=== PATIENT | female | born 1940 | race Caucasian/White ===

== ENCOUNTER → 2017-08-18 | Day surgery (SDC) | payer OTHER ==
[~2017-08-18] MED LIST: AMLODIPINE BESY10 M1 PO; ANASTROZOLE1 M1 PO; BENADRYL25 MG PO; BENICAR HCT 251 TAB PO; CLORAZEPATE D3.75 M1 PO; EXCEDRIN EXTRA1 EACH PO; FISH OIL 1,0001 EAC5 PO; FLUOXETINE HCL20 M3 PO; HYZAAR 100-12.1 EACH PO; KAOPECTATE262 MG/11 PO; LABETALOL HYDR100 MG PO; MELATONIN3 M4 PO; STRESS B-COMPL1 EACH PO; SYMBYAX 6-25 M1 EACH PO; VITAMIN D2000 UNIT PO; WELLBUTRIN XL150 M2 PO
--- NOTE | 2017-08-25 17:55 | Operative Report ---
Operative/Inv Procedure Report Surgery Date: 08/18/17 Name of Procedure: D&C hysteroscopy Pre-Operative Diagnosis: Thickened endometrium Post-Operative Diagnosis: Endometrial polyp Estimated Blood Loss: scant Surgeon/Stock Buyer: Jm Vences MD Anesthesia: moderate sedation Operative/Procedure Note Note: The patient was brought to the operating room and placed on the OR table in the dorsal supine position. She was given adequate anesthesia and repositioned into modified dorsal lithotomy. She was prepped and draped in the usual sterile fashion. A weighted speculum was inserted into the vagina with the help of a Kori retractor single-tooth tenaculum was attached to the anterior lip of the cervix. The cervix was then injected with 1% lidocaine with epinephrine 2-1/2 mL in each quadrant. An endocervical curettage was then performed revealing a small amount of tissue. The cervix was serially C dilated to accommodate the hysteroscope which was placed into the fundus and the saline was activated. 2 benign appearing polyps were noted coming from the anterior wall there were no fibroids noted. The hysteroscope was removed and the cervix was further dilated. Polyp forceps were placed into the uterine cavity and the polyps were removed. Sharp curettage followed and the hysteroscope was placed back into the uterus revealing no polyps remaining. At this point the instruments were removed as hemostasis was verified the patient was awakened and sent to recovery in good condition. All needle, sponge, and inspected counts were correct at the end of the procedure 2.
== END ==
LOC: STS 04:50
DX: C54.1 Malignant neoplasm of endometrium (principal); I10 Essential (primary) hypertension; Z85.3 Personal history of malignant neoplasm of breast
CPT/HCPCS: J2250